=== PATIENT | male | born 1980 | race Caucasian/White ===

== ENCOUNTER 2017-02-23 18:22 | Emergency (ER) | payer MEDICAID ==
[~2017-02-23] VITALS: Ht 190.5 cm; Wt 100.9 kg
[2017-02-23 18:28] VITALS: BP 146/69
--- NOTE | 2017-02-23 18:39 | NUR ---
Patient taken from ED lobby to XRAY via wheelchair by tech.
--- NOTE | 2017-02-23 18:49 | NUR ---
Patient returned to ED lobby to wait for an available bed.
--- NOTE | 2017-02-23 19:51 | NUR ---
PT TAKEN TO OF
--- NOTE | 2017-02-23 20:00 | NUR ---
Dr. Jimenez evaluating patient
[2017-02-23 20:20] VITALS: BP 137/71
--- NOTE | 2017-02-23 20:20 | NUR ---
Patient discharged with v/s stable. Written and verbal after care instructions given and explained. Patient verbalized understanding. Ambulatory with steady gait. All questions addressed prior to discharge. Advised to follow up with PMD.
== END 2017-02-23 20:20 | disposition home or self-care (01) ==
LOC: MED 18:22
DX: S92.511A Displaced fracture of proximal phalanx of right lesser toe(s), initial encounter for closed fracture (principal); Z90.49 Acquired absence of other specified parts of digestive tract; W22.8XXA Striking against or struck by other objects, initial encounter; Y93.89 Activity, other specified; Y92.89 Other specified places as the place of occurrence of the external cause; Y99.8 Other external cause status
CPT/HCPCS: 73660; 99284

== ENCOUNTER 2017-08-09 22:44 | Emergency (ER) | payer MEDICAID, OTHER ==
[~2017-08-09] VITALS: Ht 190.5 cm; Wt 113.4 kg
[2017-08-09 22:46] VITALS: BP 144/80
[2017-08-09 23:00] VITALS: BP 144/80
--- NOTE | 2017-08-09 23:07 | NUR ---
TO LOBBY AMB, STABLE, EKG DONE NSR, A/W BED, ERMD NOTED
--- NOTE | 2017-08-10 00:18 | NUR ---
PATIENT LEFT WITHOUT BEING SEEN BY DR. Jimenez. NO FURTHER CARE PROVIDED FOR PATIENT.
== END 2017-08-10 00:18 | disposition left against medical advice (07) ==
LOC: MED 22:44
DX: R06.02 Shortness of breath (principal); Z53.21 Procedure and treatment not carried out due to patient leaving prior to being seen by health care provider
CPT/HCPCS: 93005; 99281

== ENCOUNTER 2018-06-22 19:21 | Emergency (ER) | payer OTHER ==
[~2018-06-22] VITALS: Ht 190.5 cm; Wt 113.4 kg
[2018-06-22 19:56] VITALS: BP 127/84
--- NOTE | 2018-06-22 20:00 | NUR ---
PT AMBULATORY TO ER LOBBY W/ STEADY GAIT IN STABLE CONDITION.
--- NOTE | 2018-06-22 22:35 | NUR ---
LWBS AT THIS TIME.
== END 2018-06-22 22:35 | disposition left against medical advice (07) ==
LOC: MED 19:21
DX: K08.89 Other specified disorders of teeth and supporting structures (principal); Z53.21 Procedure and treatment not carried out due to patient leaving prior to being seen by health care provider

== ENCOUNTER 2019-09-10 20:34 | Emergency (ER) | payer MEDICAID, OTHER ==
[~2019-09-10] VITALS: Ht 188 cm; Wt 119.7 kg
[2019-09-10 20:38] VITALS: BP 113/86
[2019-09-10 22:22] VITALS: BP 113/86
== END 2019-09-10 22:22 | disposition home or self-care (01) ==
LOC: MED 20:34
DX: L03.90 Cellulitis, unspecified (principal); F11.90 Opioid use, unspecified, uncomplicated; Z90.49 Acquired absence of other specified parts of digestive tract
CPT/HCPCS: 99283; 99284

== ENCOUNTER 2020-03-05 23:33 | Emergency (ER) | payer MEDICAID ==
[~2020-03-05] VITALS: Ht 190.5 cm; Wt 109.8 kg
[2020-03-05 23:46] VITALS: BP 131/92
[2020-03-06 00:13] VITALS: BP 131/92
== END 2020-03-06 00:13 | disposition home or self-care (01) ==
LOC: MED 23:33
DX: L02.413 Cutaneous abscess of right upper limb (principal); F17.200 Nicotine dependence, unspecified, uncomplicated; Z98.890 Other specified postprocedural states
CPT/HCPCS: 99284

== ENCOUNTER 2021-07-01 21:29 | Emergency (ER) | payer MEDICAID ==
[~2021-07-01] VITALS: Ht 190.5 cm; Wt 108.9 kg
[2021-07-01 21:40] VITALS: BP 150/90
--- NOTE | 2021-07-01 21:43 | NUR ---
TO LOBBY A/W BED AMBULATORY
[2021-07-01] MEDS ORDERED: CLINDAMYCIN 150 MG CAP PO ONE (22:40)
[2021-07-01] MEDS ORDERED: CLIN300C2 PO (22:44)
--- NOTE | 2021-07-01 23:05 | NUR ---
Patient discharged with v/s stable. Written and verbal after care instructions given and explained. Patient alert, oriented and verbalized understanding of instructions. Ambulatory with steady gait. All questions addressed prior to discharge. ID band removed. Patient advised to follow up with PMD. Rx of CLINDAMYCIN given. Patient educated on indication of medication including possible reaction and side effects. Opportunity to ask questions provided and answered.
== END 2021-07-01 23:05 | disposition home or self-care (01) ==
LOC: MED 21:29
DX: L03.114 Cellulitis of left upper limb (principal); F11.90 Opioid use, unspecified, uncomplicated; Z79.899 Other long term (current) drug therapy
CPT/HCPCS: 99283